=== PATIENT | male | born 1955 | race Caucasian/White ===

== ENCOUNTER 2018-05-02 07:02 | Day surgery (SDC) | payer MEDICAID ==
[~2018-05-02] VITALS: Ht 167.6 cm; Wt 88.6 kg
[~2018-05-02 07:02] MED LIST: SODIUM CHLORIDE 0.9% 1,000 ML IV ONE
[2018-05-02] MEDS ORDERED: DOXE3TAB3 PO (07:08)
[2018-05-02] MEDS ORDERED: PANT40TA25 PO (07:08)
[2018-05-02] MEDS ORDERED: ATOR20TA86 PO (07:08)
[2018-05-02] MEDS ORDERED: METO25XL PO (07:08)
[2018-05-02] MEDS ORDERED: ISOS30TA6 PO (07:08)
[2018-05-02] MEDS ORDERED: ASPI81 PO (07:08)
[2018-05-02 07:33] LABS: BASOPHILS % (AUTO) 0.5 % (0.0-2.0); EOSINOPHILS % (AUTO) 2.7 % (1.0-6.0); HEMATOCRIT 39.3 % (41-53); HEMOGLOBIN 13.1 g/dL (13.5-17.5); LYMPHOCYTES # (AUTO) 3.3 K/uL (1.0-4.8); LYMPHOCYTES % (AUTO) 37.3 % (22.0-44.0); MEAN CORPUSCULAR HEMOGLOBIN 26.7 pg (26.0-34.0); MEAN CORPUSCULAR HGB CONC 33.2 G/dL (31.0-37.0); MEAN CORPUSCULAR VOLUME 80 fL (80-100); MONOCYTES # (AUTO) 0.7 K/uL (0.1-1.0); MONOCYTES % (AUTO) 8.1 % (2.0-9.0); NEUTROPHILS # (AUTO) 4.6 K/uL (1.8-7.7); NEUTROPHILS % (AUTO) 51.4 % (40.0-70.0); PLATELET COUNT (AUTO) 200 K/uL (150-450); RED BLOOD CELL COUNT(AUTO) 4.89 MIL/uL (4.50-5.90); RED CELL DISTRIBUTION WIDTH 17.7 % (11.5-14.5)
[2018-05-02 07:44] LABS: PROTHROMBIN TIME 10.4 SEC (9.4-11.6)
[2018-05-02 07:52] LABS: ANION GAP 5 mmol/L (8-16); CALCIUM, TOTAL 8.5 mg/dL (8.8-10.5); CARBON DIOXIDE 27 mmol/L (22-29); CHLORIDE 106 mmol/L (98-107); CREATININE 0.84 mg/dL (0.60-1.30); GLOMERULAR FILTR. RATE CALC > 60 mL/min (>60); GLUCOSE,RANDOM 115 mg/dL (70-110); POTASSIUM 4.3 mmol/L (3.5-5.1); SODIUM SERUM 138 mmol/L (136-145); UREA NITROGEN, BLOOD 15 mg/dL (7-18)
[2018-05-02 07:56] LABS: ALANINE AMINOTRANSFERASE 30 U/L (12-78); ALBUMIN 3.8 g/dL (3.4-5.0); ALKALINE PHOSPHATASE 101 U/L (46-116); ASPARTATE AMINOTRANSFERASE 18 U/L (15-37); BILIRUBIN,TOTAL 0.3 mg/dL (0.1-1.0)
[2018-05-02] MEDS ORDERED: LIDOCAINE HCL/PF 1% 30 ML VIAL ONE (08:19)
[2018-05-02] MEDS ORDERED: IOHEXOL 300 MG/ML 150 ML VIAL ONE (08:19)
[2018-05-02] MEDS ORDERED: SODIUM BICARBONATE 50 MEQ/50 ML VIAL ONE (08:19)
[2018-05-02] MEDS ORDERED: HEPARIN SODIUM 1000 UNITS/NS 1,000 ML ONE (08:20)
[2018-05-02 08:49] VITALS: BP 133/79
[2018-05-02] MEDS ORDERED: MIDAZOLAM HCL 2 MG/2 ML VIAL ONE (09:00)
[2018-05-02] MEDS ORDERED: FentaNYL CITRATE-PF 100 MCG/2 ML VIAL ONE (09:00)
[2018-05-02] MEDS ORDERED: PHENYLEPHRINE 200 MG/D5%-WATER 250 ML IV PRN (09:33)
[2018-05-02] MEDS ORDERED: HEPARIN SODIUM 2,000 UNITS in HEPARIN SODIUM 1000 UNITS/NS 1,000 ML IARTER ONE (09:35)
[2018-05-02] MEDS ORDERED: MIDAZOLAM HCL 2 MG/2 ML VIAL IVP ONE (09:45)
[2018-05-02] MEDS ORDERED: IOHEXOL 300 MG/ML 150 ML VIAL IARTER ONE (09:45)
[2018-05-02] MEDS ORDERED: IOHEXOL 300 MG/ML 100 ML VIAL IARTER ONE (09:45)
[2018-05-02] MEDS ORDERED: FentaNYL CITRATE-PF 100 MCG/2 ML VIAL IVP ONE (09:45)
[2018-05-02] MEDS ORDERED: LIDOCAINE 1% 30 ML/SOD BICARB 8.4% 4 ML SQ ONE (09:45)
[2018-05-02] MEDS ORDERED: VERAPAMIL HCL 2.5 MG/ML 2 ML VIAL ONE (09:49)
[2018-05-02] MEDS ORDERED: NITROGLYCERIN 50 MG/D5% WATER 0 ML ONE (09:49)
[2018-05-02 09:58] VITALS: BP 138/77
[2018-05-02] MEDS ORDERED: HEPARIN SODIUM,PORCINE 5,000 UNITS/ML VIAL IVP ONE (10:30)
== END 2018-05-02 16:00 | disposition home or self-care (01) ==
LOC: CATHLAB 07:02
PROVIDERS: ATTEND Internal Medicine Cardiovascular Disease
DX: I25.10 Atherosclerotic heart disease of native coronary artery without angina pectoris (principal); I25.82 Chronic total occlusion of coronary artery; I10 Essential (primary) hypertension; E78.5 Hyperlipidemia, unspecified; Z79.01 Long term (current) use of anticoagulants; Z79.82 Long term (current) use of aspirin; Z87.891 Personal history of nicotine dependence; Z79.899 Other long term (current) drug therapy; Z98.890 Other specified postprocedural states
CPT/HCPCS: 36415; 80053; 85025; 85610; 85730; 93005; 93458; C1769; C1887; J1644; J2250; J3010; J3490 ×2; J7030; Q9967 ×2; J2370